=== PATIENT | female | born 1980 | race Two or more races ===

== ENCOUNTER 2019-03-15 03:55 | Emergency (ER) | payer OTHER ==
[~2019-03-15] VITALS: Ht 172.7 cm; Wt 126.6 kg
[2019-03-15 03:59] VITALS: BP 156/98
[2019-03-15] MEDS ORDERED: FLUORESCEIN SODIUM OPHTH 1 EA STRIP ONE (04:05)
== END 2019-03-15 04:30 | disposition home or self-care (01) ==
LOC: ER 03:55
DX: S05.01XA Injury of conjunctiva and corneal abrasion without foreign body, right eye, initial encounter (principal); Z98.890 Other specified postprocedural states; Z88.2 Allergy status to sulfonamides; X58.XXXA Exposure to other specified factors, initial encounter; Y93.89 Activity, other specified; Y92.89 Other specified places as the place of occurrence of the external cause; Y99.8 Other external cause status